=== PATIENT | male | born 1945 | race Caucasian/White ===

== ENCOUNTER 2020-07-22 08:50 | Observation (INO) | payer MEDICARE, OTHER ==
[2020-07-17 13:08] LABS: BASOPHILS % 0.7 % (0.0-1.0); EOSINOPHILS # (AUTO) 0.2 (0.0-0.4); EOSINOPHILS % 3.4 % (0.0-6.0); HEMATOCRIT 40.3 % (38.2-49.6); HEMOGLOBIN 13.2 g/dL (14.0-18.0); LYMPHOCYTES # (AUTO) 1.3 (1.0-3.2); LYMPHOCYTES % 29.3 % (18.0-39.1); MEAN CORPUSCULAR HEMOGLOBIN 32.5 pg (28-32); MEAN CORPUSCULAR HGB CONC 32.8 g/dL (31-35); MEAN CORPUSCULAR VOLUME 99.3 fL (81-99); MONOCYTES # (AUTO) 0.6 (0.2-0.8); MONOCYTES % 14.5 % (4.4-11.3); NEUTROPHILS # (AUTO) 2.3 (2.1-6.9); NEUTROPHILS % 51.9 % (38.7-80.0); PLATELET COUNT 154 x10e3/uL (140-360); RED BLOOD COUNT 4.06 x10e6/uL (4.3-5.7); RED CELL DISTRIBUTION WIDTH 12.4 % (11.7-14.4)
[2020-07-17 13:30] LABS: ALBUMIN 3.5 g/dL (3.5-5.0); ALBUMIN/GLOBULIN RATIO 1.1 (0.8-2.0); ANION GAP 10.5 mmol/L (8-16); CALCIUM 8.7 mg/dL (8.4-10.2); CREATININE, SERUM 1.18 mg/dL (0.72-1.25); POTASSIUM 4.5 mmol/L (3.5-5.1)
[2020-07-22] VITALS (19 sets, daily range): BP systolic 100–143; BP diastolic 61–93
[~2020-07-22] VITALS: Ht 185.4 cm; Wt 77.1 kg
[~2020-07-22 08:50] MED LIST: ATORVASTATIN CA20 MG PO; BIOTIN1000 MCG PO; MAGNESIUM OXID400 MG PO; VITAMIN B-121000 MCG PO; VITAMIN D325 MCG PO; VITAMIN E400 UNIT PO
[2020-07-22] MEDS ORDERED: ALPRAZOLAM 0.5 MG TAB ONE (09:46)
[2020-07-22] MEDS ORDERED: DIPHENHYDRAMINE HCL 25 MG CAP ONE (09:47)
[2020-07-22] MEDS ORDERED: VERAPAMIL HCL 2.5 MG/ML 2 ML VIAL ONE (10:02)
[2020-07-22] MEDS ORDERED: MIDAZOLAM HCL 2 MG/2 ML VIAL ONE ×2 (10:03→12:14)
[2020-07-22] MEDS ORDERED: IOPAMIDOL 370 MG/ML 200 ML INFUS..BTL INJ ONE (10:04)
[2020-07-22] MEDS ORDERED: LIDOCAINE HCL 2% LOCAL 20 ML VIAL ONE (10:04)
[2020-07-22] MEDS ORDERED: HEPARIN SOD/SOD CHLORIDE 2,000 ML ONE (10:04)
[2020-07-22] MEDS ORDERED: FENTANYL CITRATE/PF 100MCG/2 ML INJ ONE (10:04)
[2020-07-22] MEDS ORDERED: SODIUM CHLORIDE 0.9% 1000ML 1,000 ML ONE (10:04)
[2020-07-22] MEDS ORDERED: SODIUM CHLORIDE 0.9% 50ML 50 ML ONE (11:47)
[2020-07-22] MEDS ORDERED: BIVALRIUDIN 250 MG/VIAL VIAL IV ONE (11:47)
[2020-07-22] MEDS ORDERED: HEPARIN 25,000 UNIT 900 UNIT in DEXTROSE 5% 250ML 250 ML IV SCH ×2 (12:30→17:15)
[2020-07-22] MEDS ORDERED: HEPARIN 25,000 UNIT DRIP IV ONE (12:37)
[2020-07-22 15:55] LABS: INR 1.26; PROTHROMBIN TIME 16.6 seconds (11.9-14.5)
[2020-07-22] MEDS ORDERED: MORPHINE SULFATE INJ 4 MG/ML INJ 1ML IV PRN (17:15)
[2020-07-22] MEDS ORDERED: HYDROCODONE/APAP 5MG-325MG TAB PO PRN (17:15)
[2020-07-22] MEDS ORDERED: NITROGLYCERIN 0.4 MG SUBL SL PRN (17:15)
[2020-07-23 05:25] VITALS: BP 137/82
[2020-07-23 07:07] LABS: HEMATOCRIT 39.1 % (38.2-49.6); HEMOGLOBIN 13.3 g/dL (14.0-18.0); MEAN CORPUSCULAR HEMOGLOBIN 33.1 pg (28-32); MEAN CORPUSCULAR VOLUME 97.3 fL (81-99); RED BLOOD COUNT 4.02 x10e6/uL (4.3-5.7)
[2020-07-23 07:08] LABS: BASOPHILS % 0.5 % (0.0-1.0); LYMPHOCYTES % 26.8 % (18.0-39.1); MONOCYTES % 13.1 % (4.4-11.3); NEUTROPHILS # (AUTO) 3.1 (2.1-6.9); NEUTROPHILS % 57.2 % (38.7-80.0); PLATELET COUNT 156 x10e3/uL (140-360); RED CELL DISTRIBUTION WIDTH 12.3 % (11.7-14.4)
[2020-07-23 07:09] LABS: EOSINOPHILS # (AUTO) 0.1 (0.0-0.4); LYMPHOCYTES # (AUTO) 1.5 (1.0-3.2); MONOCYTES # (AUTO) 0.7 (0.2-0.8)
[2020-07-23 07:32] VITALS: BP 155/84
[2020-07-23] MEDS ORDERED: NON-FORMULARY MEDICATION (Biotin 1,000 MCG) PO SCH (09:00)
[2020-07-23] MEDS ORDERED: CHOLECALCIFEROL 1,000 UNIT TAB PO SCH (09:00)
[2020-07-23] MEDS ORDERED: MAGNESIUM OXIDE 400 MG TAB PO SCH (09:00)
[2020-07-23] MEDS ORDERED: CYANOCOBALAMIN 1,000 MCG TAB PO SCH (09:00)
[2020-07-23] MEDS ORDERED: VITAMIN E 400 UNIT CAP PO SCH (09:00)
[2020-07-23 09:43] VITALS: BP 155/84
[2020-07-23 11:00] VITALS: BP 131/77
[2020-07-23] MEDS ORDERED: ASPIRIN81 MG (12:05)
[2020-07-23] MEDS ORDERED: ATORVASTATIN 20 MG TAB PO SCH (21:00)
== END 2020-07-23 12:16 | disposition home or self-care (01) ==
LOC: CATH LAB 08:50 → MED/SURG 18:54
PROVIDERS: ADMIT Internal Medicine Interventional Cardiology; ATTEND Internal Medicine Interventional Cardiology
DX: I25.110 Atherosclerotic heart disease of native coronary artery with unstable angina pectoris (principal); I25.82 Chronic total occlusion of coronary artery; E78.5 Hyperlipidemia, unspecified; I10 Essential (primary) hypertension; N28.9 Disorder of kidney and ureter, unspecified; Z20.822 Contact with and (suspected) exposure to COVID-19
CPT/HCPCS: 36415 ×3; 76937; 80053; 85025 ×2; 85610; 85730 ×2; 93454; C1725 ×2; C1769 ×3; C1887 ×3; C9607; G0378 ×2; J0583; J2001; J2250; J3010; J7030; Q9967; U0002; 99152; 99153